=== PATIENT | female | born 2000 | race Caucasian/White ===

== ENCOUNTER 2022-08-09 00:03 | Emergency (ER) | payer SELFPAY ==
[~2022-08-09] VITALS: Ht 160 cm; Wt 74.5 kg
[2022-08-09 00:24] VITALS: BP 113/80
== END 2022-08-09 07:32 | disposition left against medical advice (07) ==
LOC: ER 00:03 → EDBD 00:03 → ER 07:32
DX: Z53.21 Procedure and treatment not carried out due to patient leaving prior to being seen by health care provider (principal)